=== PATIENT | male | born 1985 | race Two or more races ===

== ENCOUNTER 2016-07-20 15:33 | Emergency (ER) | payer OTHER ==
[2016-07-20 16:01] VITALS: BP 114/65; PULSE 49; TEMP 98.7; BMI 31.9
--- NOTE | 2016-07-20 16:31 | PDOC ---
History of Present Illness - General Chief Complaint: Injury Stated Complaint: RT WRIST PAIN Time Seen by Provider: 07/20/16 16:22 History Source: Patient Exam Limitations: No Limitations - History of Present Illness Initial Comments: 07/20/16 16:29 Patient was at the gym, bench pressed that was more and had an acute onset of pain in his right wrist. This incurred yesterday. Use some ice but not much better today. Has difficulty performing anything requiring a grasp secondary to the pain in his wrist. Patient admits to a of hand/wrist injury one year ago where he fell onto outstretched right hand while playing basketball. States was swollen and painful but was never evaluated and no x-rays were taken at that time. States resolved without any immobility or functional problem 07/20/16 17:13 07/20/16 17:14 Severity: reports: mild, moderate Pain Location: reports: upper extremity (right wrist) Modifying Factors: improves with: None Loss of Consciousness: no loss of consciousness Past History - Travel Traveled outside of the country in the last 30 days: No Close contact w/someone who was outside of country & ill: No - Past Medical History Allergies/Adverse Reactions: Allergies Allergy/AdvReac Type Severity Reaction Status Date / Time No Known Allergies Allergy Verified 07/20/16 15:57 Home Medications: Ambulatory Orders NK [No Known Home Medication] 09/17/15 Other medical history: DENIES. - Psycho/Social/Smoking Cessation Hx Suicidal Ideation: No Smoking History: Current every day smoker Have you smoked in the past 12 months: Yes Number of Cigarettes Smoked Daily: 1 Information on smoking cessation initiated: No Review of Systems - Review of Systems Able to Perform ROS?: Yes Is the patient limited Tajik proficient: Yes Constitutional: Yes: Symptoms Reported HEENTM: No: Symptoms Reported Respiratory: No: Symptoms reported Musculoskeletal: Yes: Symptoms Reported, See HPI, Joint Swelling, Joint Stiffness All Other Systems: Reviewed and Negative (right wrist) *Physical Exam - Vital Signs Last Vital Signs Temp Pulse Resp BP Pulse Ox 98.7 F 49 L 19 114/65 98 07/20/16 15:57 07/20/16 15:57 07/20/16 15:57 07/20/16 15:57 07/20/16 15:57 - Physical Exam General Appearance: Yes: Nourished, Appropriately Dressed, Apparent Distress, Mild Distress HEENT: positive: KRISTOFER, Normal ENT Inspection, TMs Normal Neck: positive: Supple Respiratory/Chest: positive: Lungs Clear Gastrointestinal/Abdominal: positive: Soft Extremity: positive: Normal Capillary Refill, Normal Inspection. negative: Normal Range of Motion (range of motion is diminished to right wrist with flexion and extension secondary to pain reproduced at wrist joint. Is able to grasp with strong effort, neurovascular intact to fingers. No navicular pain.) Integumentary: positive: Normal Color, Dry, Warm Neurologic: positive: salt manager II-XII NML intact, Fully Oriented, Alert, Normal Mood/ Affect, Normal Response, Motor Strength 5/5 Procedures - Splinting Splint Location: Right: Wrist (Ortho-Glass thumb spica splint placed with sling) Post-Proc Neuro Vasc Exam: normal, changed from pre-exam ED Treatment Course - RADIOLOGY Radiology Studies Ordered: Category Date Time Status WRIST- RIGHT [RAD] Stat Radiology 07/20/16 16:24 Ordered Progress Note - Progress Note Progress Note: Right wrist sprain with navicular fracture that appears to be old. Consistent with patient's history, perhaps re-exacerbated same injury. Thumb spica splint placed, sling on, and patient will be directed to orthopedist/hand specialist this week for further evaluation and possible treatment. *DC/Admit/Observation/Transfer Diagnosis at time of Disposition: Sprain of wrist, right Qualifiers: Encounter type: initial encounter Qualified Code(s): S63.501A - Unspecified sprain of right wrist, initial encounter Fx navicular, wrist-closed Qualifiers: Encounter type: initial encounter Scaphoid bone location: middle third Fracture alignment: nondisplaced Laterality: right Qualified Code(s): S62.024A - Nondisplaced fracture of middle third of navicular [scaphoid] bone of right wrist, initial encounter for closed fracture - Discharge Dispostion Disposition: HOME Condition at time of disposition: Stable Admit: No - Referrals Referrals: Sharan Marquez MD [Staff Physician] - - Patient Instructions Printed Discharge Instructions: DI for Wrist Sprain, How to Use a Sling Additional Instructions: Rest, ice to area on and off for 15 minutes 4-6 times a day Avoid heavy lifting or exercise until pain and swelling is resolved or until further directed Keep area highly elevated to reduce swelling Use splints/Terence wrap as directed Followup with orthopedist in one to 2 days if not improving, if significantly improved may wait one week for followup with orthopedist May use ibuprofen 2-200 mg tablets every 6 hours as needed for pain - Post Discharge Activity Work/School Note: Back to Work
[2016-07-20] MEDS ORDERED: OXYCODONE/APAP 5/325MG COMBO TABLET ONE (17:20)
[2016-07-20] MEDS ORDERED: OXYCODONE/APAP 5/325MG COMBO TABLET PO ONE (18:04)
== END 2016-07-20 18:06 | disposition home or self-care (01) ==
LOC: JERFT 15:33
PROC: 2W38X1Z Immobilization of Right Upper Extremity using Splint (ICD-10-PCS; principal; 2016-07-20)
DX: S62.024A Nondisplaced fracture of middle third of navicular [scaphoid] bone of right wrist, initial encounter for closed fracture (principal); X50.0XXA Overexertion from strenuous movement or load, initial encounter; Y93.B3 Activity, free weights; Y92.39 Other specified sports and athletic area as the place of occurrence of the external cause; Y99.8 Other external cause status
CPT/HCPCS: 29125; 73110-TC-RT; 99281-25

== ENCOUNTER 2019-07-27 00:21 | Emergency (ER) | payer SELFPAY ==
[2019-07-27 00:46] VITALS: BMI 32.6
--- NOTE | 2019-07-27 00:50 | PDOC ---
History of Present Illness - General History Source: Patient Exam Limitations: No Limitations - History of Present Illness Initial Comments: 07/27/19 01:02 34y previously healthy M presenting w fevers, nasal congestion, SOB, non productive cough, body aches, vomiting, diarrhea for last 3d. Last took tylenol 5pm today. Denies chest/ABD pain, urinary changes. <Eddie Lundberg - Last Filed: 07/27/19 01:51> <Vicky Gutierrez - Last Filed: 07/27/19 03:06> - General Chief Complaint: Cold Symptoms Stated Complaint: FLU LIKE SYMPTOMS Time Seen by Provider: 07/27/19 00:49 Past History - Past Medical History COPD: No - Psycho Social/Smoking Cessation Hx Smoking History: Never smoked Have you smoked in the past 12 months: No Number of Cigarettes Smoked Daily: 1 Information on smoking cessation initiated: No Drug/Substance Use Hx: Yes ([facility]) <Eddie Lundberg - Last Filed: 07/27/19 01:51> <Vicky Gutierrez - Last Filed: 07/27/19 03:06> - Past Medical History Allergies/Adverse Reactions: Allergies Allergy/AdvReac Type Severity Reaction Status Date / Time No Known Allergies Allergy Verified 07/27/19 00:46 Home Medications: Ambulatory Orders NK [No Known Home Medication] 09/17/15 Review of Systems - Review of Systems Able to Perform ROS?: Yes Constitutional: Yes: Chills, Fever HEENTM: Yes: Nose Congestion. No: Blurred Vision, Nose Pain, Throat Pain Respiratory: Yes: Cough, Shortness of Breath Cardiac (ROS): No: Chest Pain, Palpitations, Syncope ABD/GI: Yes: Diarrhea, Nausea, Vomiting. No: Abdominal Distended, Constipated : No: Burning, Dysuria, Flank Pain Musculoskeletal: No: Back Pain, Joint Pain Integumentary: No: Bruising, Dryness, Erythema Neurological: No: Headache, Seizure, Tingling Psychiatric: No: Anxiety, Depression, Stressors Endocrine: No: Excessive Sweating, Flushing, Intolerance to Cold, Intolerance to Heat Hematologic/Lymphatic: No: Anemia, Blood Clots <Eddie Lundberg - Last Filed: 07/27/19 01:51> *Physical Exam - Vital Signs Last Vital Signs Temp Pulse Resp BP Pulse Ox 100.5 F H 83 20 115/70 115 H 07/27/19 00:37 07/27/19 00:37 07/27/19 00:37 07/27/19 00:37 07/27/19 00:37 - Physical Exam General Appearance: Yes: Nourished, Appropriately Dressed, Moderate Distress HEENT: positive: EOMI, KRISTOFER, Normal Voice, Nasal Congestion, Rhinorrhea, Hearing Grossly Normal. negative: Scleral Icterus (R), Scleral Icterus (L) Respiratory/Chest: positive: Lungs Clear, Normal Breath Sounds. negative: Chest Tender, Respiratory Distress, Crackles, Rales, Rhonchi, Stridor, Wheezing Cardiovascular: positive: Regular Rhythm, Regular Rate, S1, S2. negative: Edema , Murmur Gastrointestinal/Abdominal: positive: Normal Bowel Sounds, Flat, Soft. negative : Tender, Organomegaly Extremity: positive: Delayed Capillary Refill Integumentary: positive: Normal Color, Dry Neurologic: positive: Fully Oriented, Alert, Normal Response, Responsive. negative: Numbness, Confused, Disoriented <Eddie Lundberg - Last Filed: 07/27/19 01:51> - Vital Signs Last Vital Signs Temp Pulse Resp BP Pulse Ox 100.5 F H 83 20 115/70 115 H 07/27/19 00:37 07/27/19 00:37 07/27/19 00:37 07/27/19 00:37 07/27/19 00:37 <Vicky Gutierrez - Last Filed: 07/27/19 03:06> ED Treatment Course - LABORATORY CBC & Chemistry Diagram: 07/27/19 01:15 07/27/19 01:15 - ADDITIONAL ORDERS Additional order review: Laboratory Results 07/27/19 01:15 Sodium 137 Potassium 3.8 Chloride 102 Carbon Dioxide 28 Anion Gap 7 L BUN 17.9 Creatinine 1.2 Est GFR (CKD-EPI)AfAm 92.18 Est GFR (CKD-EPI)NonAf 79.53 Random Glucose 91 Calcium 8.6 Total Bilirubin 0.7 AST 30 ALT 47 Alkaline Phosphatase 60 Total Protein 8.0 Albumin 4.2 07/27/19 01:15 RBC 4.68 MCV 92.9 MCHC 34.2 RDW 12.5 MPV 8.8 Neutrophils % 67.0 Lymphocytes % 18.7 Monocytes % 13.3 H Eosinophils % 0.5 Basophils % 0.5 - Medications Given in the ED: ED Medications Discontinued Medications Generic Name Dose Route Start Last Admin Trade Name Rachael PRN Reason Stop Dose Admin Acetaminophen 1,000 mg 07/27/19 01:00 07/27/19 01:16 Ofirmev Injection - IVPB 07/27/19 01:01 1,000 mg ONCE ONE Administration Ondansetron HCl 4 mg 07/27/19 01:00 07/27/19 01:16 Zofran Injection IVPUSH 07/27/19 01:01 4 mg NOW ONE Administration Sodium Chloride 1,000 ml 07/27/19 01:00 07/27/19 01:16 Normal Saline - IV 07/27/19 01:01 1,000 ml ONCE ONE Administration <Vicky Gutierrez - Last Filed: 07/27/19 03:06> Medical Decision Making - Medical Decision Making 07/27/19 01:03 CXR --- 34y previously healthy M presenting w fevers, nasal congestion, non productive cough, body aches, vomiting, diarrhea for last 3d. Fever 100.5 Flu vs gastroenteritis. Low concern for PNA Given 1L NS, zofran, tylenol Anticipate DC home - pending CXR, labs Signed out to night team <Eddie Lundberg - Last Filed: 07/27/19 01:51> Discharge - Discharge Information Problems reviewed: Yes <Eddie Lundberg - Last Filed: 07/27/19 01:51> - Admission No <Vicky Gutierrez - Last Filed: 07/27/19 03:06> - Discharge Information Clinical Impression/Diagnosis: Influenza B Fever Qualifiers: Fever type: unspecified Qualified Code(s): R50.9 - Fever, unspecified Condition: Improved Disposition: HOME - Patient Discharge Instructions Patient Printed Discharge Instructions: How to Avoid a Cold or Flu, Influenza Vaccine (Alternative Therapy), Influenza - Post Discharge Activity Work/Back to School Note: Back to Work
[2019-07-27] MEDS ORDERED: ONDANSETRON 4 MG/2 ML VIAL IVPUSH ONE (01:00)
[2019-07-27] MEDS ORDERED: ACETAMINOPHEN 1000 MG/100 ML VIAL (NON FORMULARY) IVPB ONE (01:00)
[2019-07-27] MEDS ORDERED: SODIUM CHLORIDE 0.9% 500 ML INFUS.BAG IV ONE (01:00)
[2019-07-27] MEDS ORDERED: ACETAMINOPHEN INJECTION 100 ML IVPB ONE (01:02)
[2019-07-27] MEDS ORDERED: ONDANSETRON 4 MG/2 ML VIAL ONE (01:03)
--- NOTE | 2019-07-27 01:52 | PDOC ---
Attending Attestation - Resident Resident Name: TamikaEddie - ED Attending Attestation I have performed the following: I have examined & evaluated the patient, The case was reviewed & discussed with the resident, I agree w/resident's findings & plan - HPI HPI: 07/29/19 05:34 34y previously healthy M presenting w fevers, nasal congestion, SOB, non productive cough, body aches, vomiting, diarrhea for last 3d. Last took tylenol 5pm today. Denies chest/ABD pain, urinary changes. - Physicial Exam PE: 07/29/19 05:34 Agree with resident exam Pt has minimal diffuse abd pain Fever VSS heart tachycardic Lungs clear normal neuro exam Pt appears in mild distress - Medical Decision Making 07/29/19 05:35 Pt will be signed out to the day team. All results pending and he will be dispositioned in the AM
[2019-07-27 02:20] LABS: BASO % 0.5 % (0-2.0); EOS % 0.5 % (0-4.5); HEMATOCRIT 43.5 % (35.4-49); HEMOGLOBIN 14.9 GM/dL (11.7-16.9); LYMPH % 18.7 % (8-40); MCH 31.8 pg (25.7-33.7); MCHC 34.2 g/dl (32.0-35.9); MEAN CELL VOLUME 92.9 fl (80-96); MEAN PLT VOLUME 8.8 fl (7.5-11.1); MONO % 13.3 % (3.8-10.2); PLATELET COUNT 140 K/MM3 (134-434); RBC 4.68 M/mm3 (4.00-5.60); RDW 12.5 % (11.9-15.9); WHITE BLOOD COUNT 4.3 K/mm3 (4.0-10.0)
[2019-07-27 02:38] LABS: ALBUMIN 4.2 g/dl (3.4-5.0); BILIRUBIN,TOTAL 0.7 mg/dL (0.2-1); BLOOD UREA NITROGEN 17.9 mg/dL (7-18); CALCIUM 8.6 mg/dL (8.5-10.1); CREATININE 1.2 mg/dL (0.55-1.3); POTASSIUM 3.8 mmol/L (3.5-5.1)
[2019-07-27 03:41] VITALS: BP 125/65; PULSE 82; TEMP 99.9
== END 2019-07-27 04:05 | disposition home or self-care (01) ==
LOC: JER 00:21
PROC: 3E033NZ Introduction of Analgesics, Hypnotics, Sedatives into Peripheral Vein, Percutaneous Approach (ICD-10-PCS; principal; 2019-07-27)
PROC: 3E033GC Introduction of Other Therapeutic Substance into Peripheral Vein, Percutaneous Approach (ICD-10-PCS; 2019-07-27)
DX: J10.1 Influenza due to other identified influenza virus with other respiratory manifestations (principal)
CPT/HCPCS: 36415; 71045-TC-FY; 80053; 85025; 87804; 99283-25; J0131